=== PATIENT | male | born 1970 | race Caucasian/White ===

== ENCOUNTER 2017-01-06 05:53 | Emergency (ER) | payer OTHER ==
[~2017-01-06] VITALS: Ht 170.2 cm; Wt 103.2 kg
[~2017-01-06 05:53] MED LIST: COUMADIN5 MG PO; LOVENOX100 MG/1 M SC
[2017-01-06 06:35] LABS: BASOPHIL COUNT 0.1 K/uL (0-0.1); EOSINOPHIL (%) 4.2 % (0-5); EOSINOPHIL COUNT 0.4 K/uL (0-0.3); IMMATURE GRANULOCYTE (%) 0.4 % (0.0-0.7); INSTRUMENT ABS NEUTROPHIL CT 5.8 K/uL; LYMPHOCYTE COUNT 2.1 K/uL (1.0-2.8); MCH 29.5 PG (29.0-34.0); MCHC 32.7 G/DL (30.0-36.0); MCV 90.1 FL (86-99); MEAN PLAT.VOLUME 9.9 uM^3 (9.0-12.4); MONOCYTE (%) 8.4 % (3-12); MONOCYTE COUNT 0.8 K/uL (0-0.8); NEUTROPHIL COUNT 5.8 K/uL (1.8-6.4); PLATELET COUNT 235 K/uL (156-360); RBC DIS.WIDTH-CV 12.6 % (11.8-14.6); RBC DIS.WIDTH-SD 41.4 % (39-53); RED BLOOD COUNT 5.33 M/uL (4.00-5.50); WHITE BLOOD COUNT 9.2 K/uL (4.1-10.2)
[2017-01-06 06:42] LABS: CHLORIDE 106 mEq/L (99-109); SODIUM 143 mEq/L (136-147)
[2017-01-06 06:44] LABS: GLUCOSE 116 mg/dL (70-99)
[2017-01-06 06:46] LABS: ANION GAP 11 MEQ/L (2-14)
[2017-01-06 06:48] LABS: GFR ESTIMATE (CALCULATED) > 59 mL/min/
[2017-01-06 06:49] LABS: UREA NITROGEN (BUN) 13 mg/dL (9-23)
[2017-01-06 08:43] LABS: ADD MIUA? NO; BILIRUBIN NEGATIVE; BLOOD NEGATIVE; COLOR YELLOW ((YELLOW)); GLUCOSE (STRIP) NEGATIVE; KETONES NEGATIVE; LEUKOCYTES NEGATIVE; NITRITE NEGATIVE; PROTEIN (STRIP) NEGATIVE; SPECIFIC GRAVITY 1.012 (1.000-1.030); UROBILINOGEN 0.2 MG/DL (0.2-1.0)
[2017-01-06] MEDS ORDERED: TYLENOL WITH C1 EACH PO (09:27)
[2017-01-06 09:37] VITALS: BP 117/71
== END 2017-01-06 09:37 | disposition home or self-care (01) ==
LOC: EME 05:53
PROVIDERS: Emergency Medicine
DX: R10.9 Unspecified abdominal pain (principal); Z87.442 Personal history of urinary calculi
CPT/HCPCS: 74176; 80048; 81003; 85025; 99281; 99285; J1885; J2270; J2405; J7030